=== PATIENT | female | born 1955 | race African-American/Black ===

== ENCOUNTER 2016-06-24 09:33 | Day surgery (SDC) | payer OTHER ==
--- NOTE | ~2016-06-24 | EGD ---
EGD REPORT [facility] [address] [address] NAME: PARVEEN JIMENEZ : [birth year] STATUS : REG [facility]#: [id number] AGE: 60 ADM/REG DATE : 06/24/16 MR#: [id number] REPORT SERV DATE: 06/24/16 DICTATED BY: TOI BORJA DATE: 06/24/16 REPORT STATUS : Draft [facility]ANS[facility]IBED BY: [facility] DATE: 06/24/16 Endoscopy Center Patient Name: Parveen Jimenez Date of : 1955 Attending MD: TOI BORJA MD Procedure Date No Time: 06/24/2016 Procedure: Colonoscopy Indications: High risk colon cancer surveillance: Personal history of colonic polyps Referring MD: DAYAN GAR Medicines: as per anesthesia Complications: No immediate complications. Procedure: Pre-Anesthesia Assessment: - ASA Grade Assessment: III - A patient with severe systemic disease. After I obtained informed consent, the scope was passed under direct vision. Throughout the procedure, the patient's blood pressure, pulse, and oxygen saturations were monitored continuously. The PCF [id number] was introduced through the anus and advanced to the cecum, identified by appendiceal orifice and ileocecal valve. The colonoscopy was performed without difficulty. The patient tolerated the procedure. The quality of the bowel preparation was fair. Findings: The perianal and digital rectal examinations were normal. The colon (entire examined portion) appeared normal. Impression: - The entire examined colon is normal. Recommendation: - Repeat colonoscopy in 5 years for surveillance. Procedure Code(s): --- Professional --- 06361, Colonoscopy, flexible, proximal to splenic flexure; diagnostic, with or without collection of specimen(s) by brushing or washing, with or without colon decompression (separate procedure) Diagnosis Code(s): --- Professional --- Z86.010, Personal history of colonic polyps CPT copyright 2013 [employer]. All rights reserved. EGD REPORT [facility] [address] [address] NAME: PARVEEN JIMENEZ : [birth year] [place]US : [place] [facility] [place]#: [id number] AGE: 60 ADM/REG DATE : 06/24/16 MR#: [id number] REPORT SERV DATE: 06/24/16 DICTATED BY: TOI BORJA. DATE: 06/24/16 REPORT STATUS : Draft TRANSCRIBED BY: [employer] DATE: 06/24/16 The codes documented in this report are preliminary and upon fishing tool operator review may be revised to meet current compliance requirements. TOI BORJA MD 06/24/2016 12:14 PM This report has been signed electronically. Number of Addenda: 0 Note Initiated On: 06/24/2016 11:46 AM Scope Withdrawal Time 0 hours 6 minutes 32 seconds [address] [id number]
--- NOTE | ~2016-06-24 | EGD ---
EGD REPORT [facility] [address] [address] NAME: PARVEEN JIMENEZ : 53 STATUS : REG [facility]#: [id number] AGE: 60 ADM/REG DATE : 06/24/16 MR#: [id number] REPORT SERV DATE: 06/24/16 DICTATED BY: TOI BORJA DATE: 06/24/16 REPORT STATUS : Draft [facility]ANSCRIBED BY: [facility] DATE: 06/24/16 Endoscopy Center Patient Name: Parveen Jimenez Date of : 1955 Attending MD: TOI BORJA MD Procedure Date No Time: 06/24/2016 Procedure: Upper GI endoscopy Indications: Heartburn, Suspected esophageal reflux Referring MD: DAYAN GAR Medicines: as per anesthesia Complications: No immediate complications. Procedure: Pre-Anesthesia Assessment: - ASA Grade Assessment: III - A patient with severe systemic disease. After obtaining informed consent, the endoscope was passed under direct vision. Throughout the procedure, the patient's blood pressure, pulse, and oxygen saturations were monitored continuously. The GIF H190 [id number] was introduced through the mouth, and advanced to the third part of duodenum. The upper GI endoscopy was accomplished without difficulty. The patient tolerated the procedure. Findings: The examined esophagus was normal. Localized moderate inflammation characterized by erythema and friability was found in the gastric antrum. Biopsies were taken with a cold forceps for histology. The cardia and gastric fundus were normal on retroflexion. The examined duodenum was normal. Impression: - Normal esophagus. - Gastritis. Biopsied. - Normal examined duodenum. Recommendation: - Await pathology results. - Follow an antireflux regimen. - Continue present medications. Procedure Code(s): --- Professional --- 26015, Esophagogastroduodenoscopy, flexible, transoral; with biopsy, single or multiple Diagnosis Code(s): --- Professional --- K29.70, Gastritis, unspecified, without bleeding EGD REPORT [facility] [address] [address] NAME: PARVEEN JIMENEZ : 53 STATUS : REG [facility]#: [id number] AGE: 60 ADM/REG DATE : 06/24/16 MR#: [id number] REPORT SERV DATE: 06/24/16 DICTATED BY: TOI BORJA. DATE: 06/24/16 REPORT STATUS : Draft TRANSCRIBED BY: [employer] DATE: 06/24/16 R12, Heartburn CPT copyright 2013 [employer]. All rights reserved. The codes documented in this report are preliminary and upon medical billing coder review may be revised to meet current compliance requirements. TOI BORJA MD 06/24/2016 11:50 AM This report has been signed electronically. Number of Addenda: 0 Note Initiated On: 06/24/2016 11:27 AM Scope Withdrawal Time 0 hours 0 minutes 0 seconds [address] [facility] [place] [id number]
[~2016-06-24 09:33] MED LIST: ALEVE220 MG PO; CALTRAT600 PO; CELEBREX2 PO; COZ50 PO; DIOV80 PO; DIVIGEL0.25 MG TD; KLOR-CON 1010 MEQ PO; LEVOTHYROXIN100 MCG PO; MINIVELLE1 EACH TOP; MULTIPLE VIT PO; PROTONIX PO; ROB1T PO; SEROQUEL50 MG PO; SYN075 PO; TYLENOL SIN1 OR; VITE1000 PO; XANAX1 MG PO; ZOCOR40 PO
== END 2016-06-24 23:59 | disposition home or self-care (01) ==
LOC: DMU 09:33
PROVIDERS: Internal Medicine Gastroenterology
PROC: 0DJD8ZZ Inspection of Lower Intestinal Tract, Via Natural or Artificial Opening Endoscopic (ICD-10-PCS; principal; 2016-06-24 11:00)
PROC: 0DB68ZX Excision of Stomach, Via Natural or Artificial Opening Endoscopic, Diagnostic (ICD-10-PCS; 2016-06-24 11:00)
DX: K21.9 Gastro-esophageal reflux disease without esophagitis (principal); I10 Essential (primary) hypertension; M19.90 Unspecified osteoarthritis, unspecified site; M48.06 Spinal stenosis, lumbar region; E03.9 Hypothyroidism, unspecified; F41.9 Anxiety disorder, unspecified; M43.10 Spondylolisthesis, site unspecified; Z86.010 Personal history of colon polyps; Z79.899 Other long term (current) drug therapy; Z90.89 Acquired absence of other organs; Z90.710 Acquired absence of both cervix and uterus; Z98.890 Other specified postprocedural states
CPT/HCPCS: 88305